=== PATIENT | female | born 1955 | race Caucasian/White ===

== ENCOUNTER 2024-11-27 14:17 | Emergency (ER) | payer OTHER ==
[~2024-11-27] VITALS: Ht 152.4 cm; Wt 62.0 kg
[2024-11-27 14:48] VITALS: BP 148/85
[2024-11-27 15:06] LABS: BASO% 0.2 % (0-3); EOS% 1.2 % (0-8); HEMATOCRIT 36.8 % (37.0-47.0); IMMATURE GRANULOCYTES 0.6 % (0.0-5.0); MEAN CELL VOLUME 91.3 fL CALC (80.0-100.0); MEAN CORPUSCULAR HGB 29.8 pG CALC (26.0-32.0); MEAN CORPUSCULAR HGB CONC 32.6 g/dL CAL (32.0-36.0); MONO% 3.9 % (2-13); NEUT# 5.64 thou/uL (2.00-7.15); NEUT% 70.1 % (42-76); RED BLOOD COUNT 4.03 mill/uL (4.20-5.60); RED CELL DISTRI WIDTH 13.2 % (11.5-15.5)
[2024-11-27 15:25] LABS: ALBUMIN 4.1 g/dL (3.2-5.0); BILIRUBIN, TOTAL 0.6 mg/dL (0.02-1.3); CREATININE 0.7 mg/dL (0.5-1.0); POTASSIUM 3.9 mmol/l (3.5-5.1); TOTAL PROTEIN 6.8 g/dL (6.3-8.2)
[2024-11-27 16:08] VITALS: BP 137/75
[2024-11-27 16:16] VITALS: BP 147/78
[2024-11-27 16:30] VITALS: BP 125/74
[2024-11-27 16:45] VITALS: BP 132/76
[2024-11-27] MEDS ORDERED: LEVOFLOXACIN750 MG PO (17:41)
[2024-11-27 17:46] VITALS: BP 132/76
== END 2024-11-27 17:51 | disposition home or self-care (01) | DRG 206 ==
LOC: ED 14:17
PROVIDERS: Family Medicine
DX: R91.1 Solitary pulmonary nodule (principal); Z87.01 Personal history of pneumonia (recurrent)
CPT/HCPCS: Q9967